=== PATIENT | male | born 1950 | race Caucasian/White ===

== ENCOUNTER → 2016-10-11 | Outpatient (REF) | payer BC, MEDICARE ==
[2016-10-11 12:46] LABS: ALBUMIN 4.3 GM/DL (3.2-5.2); ALBUMIN/GLOBULIN RATIO 1.34 (1.00-1.93); ALKALINE PHOSPHATASE 87 U/L (45-117); ALT/SGPT 38 U/L (12-78); ANION GAP 8 MEQ/L (8-16); AST/SGOT 26 U/L (15-37); BILIRUBIN,TOTAL 0.6 MG/DL (0.2-1.0); BLOOD UREA NITROGEN 13 MG/DL (7-18); CALCIUM LEVEL 9.3 MG/DL (8.8-10.2); CARBON DIOXIDE LEVEL 27 MEQ/L (21-32); CHLORIDE LEVEL 102 MEQ/L (98-107); CHOLESTEROL LEVEL 219 MG/DL (<200); GLOMERULAR FILTRATION RATE > 60.0 (>49); GLUCOSE, FASTING 202 MG/DL (80-110); POTASSIUM SERUM 4.4 MEQ/L (3.5-5.1); SODIUM LEVEL 137 MEQ/L (136-145); TOTAL PROTEIN 7.5 GM/DL (6.4-8.2); TRIGLYCERIDES LEVEL 572 MG/DL (<150)
== END | disposition home or self-care (01) ==
LOC: M SFHCCLAY 09:13
PROVIDERS: ATTEND Nurse Practitioner
DX: E11.49 Type 2 diabetes mellitus with other diabetic neurological complication (principal); E78.5 Hyperlipidemia, unspecified; I10 Essential (primary) hypertension; G57.91 Unspecified mononeuropathy of right lower limb

== ENCOUNTER → 2016-12-30 | Outpatient (REF) | payer BC, MEDICARE ==
[2016-12-30 17:00] LABS: ALBUMIN 4.1 GM/DL (3.2-5.2); ALBUMIN/GLOBULIN RATIO 1.24 (1.00-1.93); ALKALINE PHOSPHATASE 113 U/L (45-117); ALT/SGPT 27 U/L (12-78); ANION GAP 7 MEQ/L (8-16); AST/SGOT 15 U/L (15-37); BILIRUBIN,TOTAL 0.4 MG/DL (0.2-1.0); BLOOD UREA NITROGEN 16 MG/DL (7-18); CALCIUM LEVEL 9.5 MG/DL (8.8-10.2); CARBON DIOXIDE LEVEL 28 MEQ/L (21-32); CHLORIDE LEVEL 107 MEQ/L (98-107); CHOLESTEROL LEVEL 178 MG/DL (<200); CREATININE FOR GFR 1.11 MG/DL (0.70-1.30); GLOMERULAR FILTRATION RATE > 60.0 (>49); GLUCOSE, FASTING 224 MG/DL (80-110); POTASSIUM SERUM 4.4 MEQ/L (3.5-5.1); SODIUM LEVEL 142 MEQ/L (136-145); TOTAL PROTEIN 7.4 GM/DL (6.4-8.2); TRIGLYCERIDES LEVEL 282 MG/DL (<150)
== END ==
LOC: M SFHCCLAY 09:55
PROVIDERS: ATTEND Nurse Practitioner
DX: E11.49 Type 2 diabetes mellitus with other diabetic neurological complication (principal)

== ENCOUNTER → 2017-08-03 | Outpatient (REF) | payer BC, MEDICARE ==
[2017-08-03 18:56] LABS: ALBUMIN 4.3 GM/DL (3.2-5.2); ALKALINE PHOSPHATASE 91 U/L (45-117); ALT/SGPT 24 U/L (12-78); ANION GAP 10 MEQ/L (8-16); AST/SGOT 12 U/L (7-37); BILIRUBIN,TOTAL 0.4 MG/DL (0.2-1.0); BLOOD UREA NITROGEN 13 MG/DL (7-18); CALCIUM LEVEL 9.5 MG/DL (8.8-10.2); CARBON DIOXIDE LEVEL 25 MEQ/L (21-32); CHLORIDE LEVEL 105 MEQ/L (98-107); CHOLESTEROL LEVEL 153 MG/DL (<200); CREATININE FOR GFR 0.93 MG/DL (0.70-1.30); GLOMERULAR FILTRATION RATE > 60.0 (>49); GLUCOSE, FASTING 188 MG/DL (80-110); POTASSIUM SERUM 4.2 MEQ/L (3.5-5.1); SODIUM LEVEL 140 MEQ/L (136-145); TOTAL PROTEIN 7.5 GM/DL (6.4-8.2); TRIGLYCERIDES LEVEL 288 MG/DL (<150)
[2017-08-03 18:57] LABS: ALBUMIN/GLOBULIN RATIO 1.34 (1.00-1.93)
== END ==
LOC: M SFHCCLAY 10:50
PROVIDERS: ATTEND Family Medicine
DX: Z12.5 Encounter for screening for malignant neoplasm of prostate (principal); E11.8 Type 2 diabetes mellitus with unspecified complications
CPT/HCPCS: 80053; 80061; 82043; 83036; G0103

== ENCOUNTER → 2018-02-27 | Outpatient (REF) | payer BC, MEDICARE ==
[2018-02-27 16:44] LABS: ALBUMIN 3.9 GM/DL (3.2-5.2); ALBUMIN/GLOBULIN RATIO 1.26 (1.00-1.93); ALKALINE PHOSPHATASE 85 U/L (45-117); ALT/SGPT 29 U/L (12-78); ANION GAP 10 MEQ/L (8-16); AST/SGOT 17 U/L (7-37); BILIRUBIN,TOTAL 0.3 MG/DL (0.2-1.0); BLOOD UREA NITROGEN 12 MG/DL (7-18); CALCIUM LEVEL 8.9 MG/DL (8.8-10.2); CARBON DIOXIDE LEVEL 23 MEQ/L (21-32); CHLORIDE LEVEL 110 MEQ/L (98-107); CREATININE FOR GFR 1.03 MG/DL (0.70-1.30); GLOMERULAR FILTRATION RATE > 60.0 (>49); GLUCOSE, FASTING 214 MG/DL (70-100); POTASSIUM SERUM 4.5 MEQ/L (3.5-5.1); SODIUM LEVEL 143 MEQ/L (136-145)
[2018-02-27 16:50] LABS: ESTIMATED AVERAGE GLUCOSE 177 MG/DL (60-110); HEMOGLOBIN A1c 7.8 %
== END ==
LOC: M SFHCCLAY 09:41
DX: E11.49 Type 2 diabetes mellitus with other diabetic neurological complication (principal)
CPT/HCPCS: 80053

== ENCOUNTER → 2018-06-18 | Outpatient (REF) | payer BC, MEDICARE ==
[2018-06-19 22:05] LABS: ANION GAP 9 MEQ/L (8-16); BLOOD UREA NITROGEN 15 MG/DL (7-18); CALCIUM LEVEL 8.9 MG/DL (8.8-10.2); CARBON DIOXIDE LEVEL 25 MEQ/L (21-32); CHLORIDE LEVEL 104 MEQ/L (98-107); CREATININE FOR GFR 0.86 MG/DL (0.70-1.30); GLOMERULAR FILTRATION RATE > 60.0 (>49); GLUCOSE, FASTING 194 MG/DL (70-100); POTASSIUM SERUM 3.8 MEQ/L (3.5-5.1); SODIUM LEVEL 138 MEQ/L (136-145)
[2018-06-19 23:35] LABS: ESTIMATED AVERAGE GLUCOSE 212 MG/DL (60-110)
== END ==
LOC: M SFHCCLAY 15:49
DX: E11.49 Type 2 diabetes mellitus with other diabetic neurological complication (principal)
CPT/HCPCS: 83036

== ENCOUNTER → 2018-10-05 | Outpatient (REF) | payer OTHER ==
[2018-10-05 12:58] LABS: CREATININE, URINE 29.7 MG/DL; MALB URINE SIEMENS 25.1 MG/L; MAU/CREAT RATIO 84.5 MCG/MG (0.0-30.0)
[2018-10-05 12:59] LABS: ALBUMIN 3.9 GM/DL (3.2-5.2); ALT/SGPT 25 U/L (12-78); BILIRUBIN,TOTAL 0.4 MG/DL (0.2-1.0); BLOOD UREA NITROGEN 10 MG/DL (7-18); CALCIUM LEVEL 8.8 MG/DL (8.8-10.2); CARBON DIOXIDE LEVEL 27 MEQ/L (21-32); CHLORIDE LEVEL 105 MEQ/L (98-107); CHOLESTEROL LEVEL 177 MG/DL (<200); CHOLESTEROL RISK RATIO 4.214 (<5); CREATININE FOR GFR 0.89 MG/DL (0.70-1.30); GLOMERULAR FILTRATION RATE > 60.0 (>49); GLUCOSE, FASTING 158 MG/DL (70-100); HDL CHOLESTEROL 42 MG/DL (>40); LDL CHOLESTEROL 89 MG/DL (<100); NON-HDL-C 135 MG/DL; POTASSIUM SERUM 3.9 MEQ/L (3.5-5.1); SODIUM LEVEL 140 MEQ/L (136-145); TOTAL PROTEIN 6.9 GM/DL (6.4-8.2); TRIGLYCERIDES LEVEL 232 MG/DL (<150)
[2018-10-05 13:52] LABS: HEMOGLOBIN A1c 8.6 %
== END ==
LOC: M SFHCCLAY 08:09
PROVIDERS: ATTEND Family Medicine
DX: E11.49 Type 2 diabetes mellitus with other diabetic neurological complication (principal)

== ENCOUNTER → 2019-01-03 | Outpatient (REF) | payer BC ==
[2019-01-03 17:06] LABS: ALBUMIN 3.7 GM/DL (3.2-5.2); ALT/SGPT 24 U/L (12-78); BILIRUBIN,TOTAL 0.3 MG/DL (0.2-1.0); BLOOD UREA NITROGEN 10 MG/DL (7-18); CALCIUM LEVEL 9.5 MG/DL (8.8-10.2); CARBON DIOXIDE LEVEL 31 MEQ/L (21-32); CHLORIDE LEVEL 103 MEQ/L (98-107); GLOMERULAR FILTRATION RATE > 60.0 (>49); GLUCOSE, FASTING 199 MG/DL (70-100); POTASSIUM SERUM 4.1 MEQ/L (3.5-5.1); SODIUM LEVEL 140 MEQ/L (136-145); TOTAL PROTEIN 7.2 GM/DL (6.4-8.2)
[2019-01-03 17:09] LABS: HEMOGLOBIN A1c 8.1 %
== END ==
LOC: M SFHCCLAY 10:50
PROVIDERS: ATTEND Family Medicine
DX: E11.49 Type 2 diabetes mellitus with other diabetic neurological complication (principal)

== ENCOUNTER → 2019-05-09 | Outpatient (REF) | payer BC ==
[2019-05-09 17:44] LABS: ALBUMIN 4.2 GM/DL (3.2-5.2); ALT/SGPT 39 U/L (12-78); BILIRUBIN,TOTAL 0.5 MG/DL (0.2-1.0); BLOOD UREA NITROGEN 17 MG/DL (7-18); CALCIUM LEVEL 9.8 MG/DL (8.8-10.2); CARBON DIOXIDE LEVEL 24 MEQ/L (21-32); CHLORIDE LEVEL 103 MEQ/L (98-107); CREATININE FOR GFR 1.03 MG/DL (0.70-1.30); GLOMERULAR FILTRATION RATE > 60.0 (>49); GLUCOSE, FASTING 164 MG/DL (70-100); POTASSIUM SERUM 4.2 MEQ/L (3.5-5.1); SODIUM LEVEL 139 MEQ/L (136-145); TOTAL PROTEIN 7.3 GM/DL (6.4-8.2)
[2019-05-09 19:22] LABS: HEMOGLOBIN A1c 8.5 %
== END ==
LOC: M SFHCCLAY 13:49
PROVIDERS: ATTEND Family Medicine
DX: E11.49 Type 2 diabetes mellitus with other diabetic neurological complication (principal)

== ENCOUNTER → 2019-08-19 | Outpatient (CLI) | payer BC ==
--- NOTE | 2019-08-24 09:15 | SLEEPCENT ---
DATE OF PROCEDURE: 08/19/2019 ORDERED BY: Dr. Ghada Salvador Nocturnal polysomnography was performed for the titration of pressure therapy in this patient with obstructive sleep apnea syndrome. For testing a ResMed AirFit F20 full face mask of medium size was used, 4 cm of water pressure were initially applied to the circuit and the lights were extinguished. 7 hours and 24 minutes of data were reviewed. There were 374.5 minutes of sleep identified. Sleep latency was prolonged at 32.5 minutes. Rapid eye movement (REM) latency was normal at 58 minutes, sleep architecture was good with three REM cycles. Overall sleep efficiency 85.4%. The patient's electrocardiogram showed sinus rhythm with an average heart rate of 75 beats per minute. EEG showed normal waveforms for awake and sleep. Respiratory events prompted a increase in continuous positive airway pressure (CPAP) to the optimal pressure of +13 with which the patient slept through REM without respiratory event or oxygen desaturation. There was significant limb activity but limb movement arousal index was only 2.6. IMPRESSION: Obstructive sleep apnea syndrome (G47.33). RECOMMENDATION: Nightly use of pressure therapy 13 cm of water.
== END ==
LOC: M SLEEP 19:36
PROVIDERS: ATTEND Internal Medicine Pulmonary Disease
DX: G47.33 Obstructive sleep apnea (adult) (pediatric) (principal)

== ENCOUNTER → 2019-09-30 | Outpatient (REF) | payer OTHER, BC ==
[2019-09-30 17:14] LABS: ALBUMIN 4.3 GM/DL (3.2-5.2); ALT/SGPT 27 U/L (12-78); BILIRUBIN,TOTAL 0.5 MG/DL (0.2-1.0); BLOOD UREA NITROGEN 22 MG/DL (7-18); CALCIUM LEVEL 9.4 MG/DL (8.8-10.2); CARBON DIOXIDE LEVEL 26 MEQ/L (21-32); CHLORIDE LEVEL 107 MEQ/L (98-107); CHOLESTEROL LEVEL 206 MG/DL (<200); GLOMERULAR FILTRATION RATE > 60.0 (>49); GLUCOSE, FASTING 165 MG/DL (70-100); HDL CHOLESTEROL 43 MG/DL (>40); LDL CHOLESTEROL 102 MG/DL (<100); NON-HDL-C 163 MG/DL; POTASSIUM SERUM 4.3 MEQ/L (3.5-5.1); SODIUM LEVEL 142 MEQ/L (136-145); TOTAL PROTEIN 7.4 GM/DL (6.4-8.2); TRIGLYCERIDES LEVEL 305 MG/DL (<150)
[2019-09-30 17:18] LABS: HEMOGLOBIN A1c 8.4 %
== END ==
LOC: M SFHCCLAY 10:56
PROVIDERS: ATTEND Family Medicine
DX: E11.49 Type 2 diabetes mellitus with other diabetic neurological complication (principal); E78.5 Hyperlipidemia, unspecified

== ENCOUNTER → 2020-01-30 | Outpatient (REF) | payer BC ==
[2020-01-30 16:28] LABS: ALBUMIN 3.9 GM/DL (3.2-5.2); ALT/SGPT 31 U/L (12-78); BILIRUBIN,TOTAL 0.4 MG/DL (0.2-1.0); BLOOD UREA NITROGEN 34 MG/DL (7-18); CALCIUM LEVEL 9.2 MG/DL (8.8-10.2); CARBON DIOXIDE LEVEL 23 MEQ/L (21-32); CHLORIDE LEVEL 105 MEQ/L (98-107); CREATININE FOR GFR 1.25 MG/DL (0.70-1.30); GLOMERULAR FILTRATION RATE > 60.0 (>49); GLUCOSE, FASTING 189 MG/DL (70-100); POTASSIUM SERUM 4.7 MEQ/L (3.5-5.1); SODIUM LEVEL 135 MEQ/L (136-145); TOTAL PROTEIN 6.8 GM/DL (6.4-8.2)
[2020-01-30 17:33] LABS: HEMOGLOBIN A1c 9.6 %
== END ==
LOC: M SFHCCLAY 09:53
PROVIDERS: ATTEND Family Medicine
DX: E11.49 Type 2 diabetes mellitus with other diabetic neurological complication (principal)

== ENCOUNTER → 2020-06-01 | Outpatient (REF) | payer BC ==
[2020-06-01 17:06] LABS: BILIRUBIN,TOTAL 0.4 MG/DL (0.2-1.0); CALCIUM LEVEL 10.6 MG/DL (8.8-10.2); CREATININE FOR GFR 1.44 MG/DL (0.70-1.30); GLOMERULAR FILTRATION RATE 52.1 (>49); TOTAL PROTEIN 7.1 GM/DL (6.4-8.2)
[2020-06-01 18:05] LABS: HEMOGLOBIN A1c 7.9 %
== END ==
LOC: M SFHCCLAY 11:17
PROVIDERS: ATTEND Family Medicine
DX: E11.49 Type 2 diabetes mellitus with other diabetic neurological complication (principal); I10 Essential (primary) hypertension

== ENCOUNTER → 2020-10-02 | Outpatient (REF) | payer BC ==
[2020-10-02 15:46] LABS: BASO # 0.1 10^3/uL (0.0-0.2); BASO % 0.8 % (0.0-1.0); EOS # 0.5 10^3/uL (0.0-0.5); EOS % 7.2 % (0.0-3.0); HEMATOCRIT 41.4 % (42.0-52.0); HEMOGLOBIN 13.3 g/dl (13.5-17.5); MEAN CORPUSCULAR HEMOGLOBIN 27.9 pg (27.0-33.0); MEAN CORPUSCULAR HGB CONC 32.1 g/dl (32.0-36.5); MEAN CORPUSCULAR VOLUME 86.8 fl (80.0-96.0); MONO # 0.6 10^3/uL (0.0-0.8); MONO % 8.6 % (0.0-5.0); NEUTROPHILS % 55.1 % (36.0-66.0); PLATELET COUNT, AUTOMATED 178 10^3/uL (150-450); RED BLOOD COUNT 4.77 10^6/uL (4.30-6.10); WHITE BLOOD COUNT 7.2 10^3/uL (4.0-10.0)
[2020-10-02 16:12] LABS: ALT/SGPT 43 U/L (12-78); BILIRUBIN,TOTAL 0.4 MG/DL (0.2-1.0); BLOOD UREA NITROGEN 25 MG/DL (7-18); CALCIUM LEVEL 9.8 MG/DL (8.8-10.2); CARBON DIOXIDE LEVEL 27 MEQ/L (21-32); CHLORIDE LEVEL 101 MEQ/L (98-107); CHOLESTEROL LEVEL 200 MG/DL (<200); CREATININE FOR GFR 1.43 MG/DL (0.70-1.30); GLOMERULAR FILTRATION RATE 52.5 (>49); GLUCOSE, FASTING 238 MG/DL (70-100); HDL CHOLESTEROL 33 MG/DL (>40); NON-HDL-C 167 MG/DL; POTASSIUM SERUM 4.7 MEQ/L (3.5-5.1); SODIUM LEVEL 137 MEQ/L (136-145); TOTAL PROTEIN 6.8 GM/DL (6.4-8.2); TRIGLYCERIDES LEVEL 641 MG/DL (<150)
[2020-10-02 16:20] LABS: FOLATE 11.3 NG/ML (>5.4); VITAMIN B12 LEVEL 259 PG/ML (247-911)
[2020-10-02 16:40] LABS: HEMOGLOBIN A1c 9.3 %
== END ==
LOC: M SFHCCLAY 10:31
PROVIDERS: ATTEND Family Medicine
DX: I10 Essential (primary) hypertension (principal); E11.49 Type 2 diabetes mellitus with other diabetic neurological complication; G60.9 Hereditary and idiopathic neuropathy, unspecified

== ENCOUNTER → 2020-10-09 | Outpatient (CLI) | payer SELFPAY | LOC: M LABSMTC 13:23 | PROVIDERS: ATTEND Pediatrics | DX: Z20.822 Contact with and (suspected) exposure to COVID-19 (principal) ==

== ENCOUNTER → 2020-10-16 | Outpatient (CLI) | payer SELFPAY | LOC: M LABSMTC 09:54 | PROVIDERS: ATTEND Pediatrics | DX: Z20.822 Contact with and (suspected) exposure to COVID-19 (principal) ==

== ENCOUNTER → 2021-02-04 | Outpatient (REF) | payer BC ==
[2021-02-05 13:24] LABS: ALBUMIN 4.2 GM/DL (3.2-5.2); BILIRUBIN,TOTAL 0.4 MG/DL (0.2-1.0); CALCIUM LEVEL 9.5 MG/DL (8.8-10.2); CREATININE FOR GFR 1.3 MG/DL (0.70-1.30); GLOMERULAR FILTRATION RATE 58.4 (>49); POTASSIUM SERUM 4.6 MEQ/L (3.5-5.1); TOTAL PROTEIN 7.4 GM/DL (6.4-8.2)
[2021-02-06 07:10] LABS: HEMOGLOBIN A1c 9.3 %
== END ==
LOC: M SFHCCLAY 14:11
PROVIDERS: ATTEND Family Medicine
DX: E11.49 Type 2 diabetes mellitus with other diabetic neurological complication (principal)

== ENCOUNTER → 2021-06-10 | Outpatient (REF) | payer BC ==
[2021-06-11 12:12] LABS: BASO # 0.1 10^3/uL (0.0-0.2); BASO % 1.1 % (0.0-1.0); EOS # 0.5 10^3/uL (0.0-0.5); EOS % 7.3 % (0.0-3.0); HEMOGLOBIN 14.3 g/dl (13.5-17.5); LYMPH # 1.3 10^3/uL (1.5-5.0); MEAN CORPUSCULAR HEMOGLOBIN 27.8 pg (27.0-33.0); MEAN CORPUSCULAR HGB CONC 31.1 g/dl (32.0-36.5); MEAN CORPUSCULAR VOLUME 89.3 fl (80.0-96.0); MONO # 0.6 10^3/uL (0.0-0.8); MONO % 9.5 % (2.0-8.0); NEUTROPHILS # 3.8 10^3/uL (1.5-8.5); NEUTROPHILS % 60.6 % (36.0-66.0); PLATELET COUNT, AUTOMATED 177 10^3/uL (150-450); RED BLOOD COUNT 5.15 10^6/uL (4.30-6.10); WHITE BLOOD COUNT 6.3 10^3/uL (4.0-10.0)
[2021-06-11 12:42] LABS: BILIRUBIN,TOTAL 0.4 MG/DL (0.2-1.0); CALCIUM LEVEL 9.5 MG/DL (8.8-10.2); CHOLESTEROL RISK RATIO 4.756 (<5); CREATININE FOR GFR 1.46 MG/DL (0.70-1.30); GLOMERULAR FILTRATION RATE 51.1 (>49); POTASSIUM SERUM 5.2 MEQ/L (3.5-5.1); TOTAL PROTEIN 7.4 GM/DL (6.4-8.2)
[2021-06-11 13:23] LABS: HEMOGLOBIN A1c 7.2 %
== END ==
LOC: M SFHCCLAY 14:09
PROVIDERS: ATTEND Family Medicine
DX: E11.8 Type 2 diabetes mellitus with unspecified complications (principal)

== ENCOUNTER → 2021-07-13 | Outpatient (CLI) | payer BC ==
--- NOTE | 2021-07-13 12:37 | REP ---
INDICATION: M79.671, M79.672 BILATERAL FOOT PAIN COMPARISON: None. TECHNIQUE: AP, lateral, bilateral oblique views right and left foot. FINDINGS: Right foot demonstrates moderate hallux valgus deformity. Periarticular sclerosis and joint space narrowing at the tarsometatarsal joints is appreciated. Remainder of the examination is relatively age-appropriate. Lateral view demonstrates small calcaneal heel spur and peripheral vascular disease. No acute fracture or dislocation. Left foot demonstrates mild hallux valgus deformity. Remainder of the examination is relatively age-appropriate. No further significant osteoarthritic degenerative changes are identified. Lateral view demonstrates calcaneal heel spur and peripheral vascular disease. No acute fracture or dislocation. IMPRESSION: Relatively age-appropriate degenerative changes along with bilateral hallux valgus deformity. <Electronically signed by Pj Laughlin > 07/13/21 [id number]
== END ==
LOC: M CLY 11:39
PROVIDERS: ATTEND Physician Assistant
DX: M79.671 Pain in right foot (principal); M79.672 Pain in left foot; M20.11 Hallux valgus (acquired), right foot; M20.12 Hallux valgus (acquired), left foot; M77.31 Calcaneal spur, right foot; M19.072 Primary osteoarthritis, left ankle and foot; M19.071 Primary osteoarthritis, right ankle and foot

== ENCOUNTER → 2021-07-27 | Outpatient (REF) | payer BC | LOC: M LAB REF 15:56 | PROVIDERS: ATTEND Podiatrist | DX: M79.671 Pain in right foot (principal); L60.0 Ingrowing nail ==

== ENCOUNTER → 2021-08-04 | Outpatient (CLI) | payer BC ==
[~2021-08-04] MED LIST: ISOVUE-370 76% 100ML VIAL As Ordered ONE
--- NOTE | 2021-08-05 07:23 | REP ---
INDICATION: CLAUDICATION COMPARISON: None TECHNIQUE: Axial contrast-enhanced images from the lung bases through the bilateral lower extremities using angiographic technique including multiplanar MIP reformations, volume rendered 3D multi rotational angiogram of the abdominal aorta and bilateral lower extremity runoff images. This CT examination was performed using the following dose reduction techniques: Automated exposure control, adjustment of mA and/or kv according to the patient's size, and use of iterative reconstruction technique. FINDINGS: The abdominal aorta as well as bilateral common iliac arteries demonstrate mild to moderate amounts of partially calcified atherosclerotic changes. However there is no evidence for abdominal aortic aneurysm, dissection or significant stenosis. Major branch vessels including celiac axis, superior mesenteric artery, bilateral renal arteries and inferior mesenteric artery appear essentially patent and relatively normal. Very minimal narrowing at the origin of the right renal artery cannot be excluded. Right lower extremity demonstrates moderate amounts of partially calcified atherosclerotic changes extending from the common femoral artery caudally. Moderate to significant scattered areas of narrowing/stenosis through the superficial femoral artery and popliteal artery are noted followed by trifurcation demonstrating flow through the proximal/mid anterior tibial and proximal peroneal artery. Scattered elements of calcification significantly limit evaluation and differentiation between actual flow enhancement versus elements of calcification and stenosis/occlusion from the proximal calf to the ankle. Left lower extremity demonstrates moderate to significant amounts of partially calcified atherosclerotic changes from the superficial femoral artery through the ankle with areas of stenosis and possible suspected partial occlusion involving the mid to distal superficial femoral artery and revascularization at the level of the popliteal artery by collateral and geniculate arteries. Further elements of stenosis involving the distal popliteal artery and suspected occlusion of the anterior tibial artery along with areas of stenosis involve the posterior tibial and peroneal arteries to the ankle. Liver, spleen, pancreas, gallbladder, bilateral adrenal glands and kidneys are essentially normal for arterial phase enhancement. The enteric system is without obstruction or acute inflammatory process. Diffuse colonic and sigmoid diverticulosis noted without acute diverticulitis. Normal terminal ileum and appendix are identified in the right lower quadrant. 3 cm fat containing periumbilical hernias identified. Pelvis demonstrates normal bladder and mildly prominent prostate gland. No obvious ascites. No significant adenopathy. Musculoskeletal structures demonstrate degenerative changes and right hip replacement. IMPRESSION: 1. Extensive atherosclerotic changes to the bilateral lower extremities with suspected scattered areas of stenosis as well as areas of occlusion involving the left superficial femoral artery as well as the left anterior tibial artery. Arterial ultrasound examination is recommended for more specific and detailed evaluation of flow to the lower extremities. <Electronically signed by Pj Laughlin > 08/05/21 0719
== END ==
LOC: M RAD 14:11
PROVIDERS: ATTEND Podiatrist
DX: I70.213 Atherosclerosis of native arteries of extremities with intermittent claudication, bilateral legs (principal)
CPT/HCPCS: 75635; Q9967

== ENCOUNTER → 2021-10-09 | Outpatient (CLI) | payer BC | LOC: M LABSMTC 10:21 | PROVIDERS: ATTEND Surgery Vascular Surgery | DX: U07.1 COVID-19 (principal) ==

== ENCOUNTER → 2021-11-29 | Outpatient (REF) | payer BC ==
[2021-11-29 12:15] LABS: CALCIUM LEVEL 8.7 MG/DL (8.8-10.2); CREATININE FOR GFR 1.58 MG/DL (0.70-1.30); GLOMERULAR FILTRATION RATE 46.5 (>49); POTASSIUM SERUM 4.7 MEQ/L (3.5-5.1)
== END ==
LOC: M LABDRAWC 11:14
DX: Z95.820 Peripheral vascular angioplasty status with implants and grafts (principal)

== ENCOUNTER → 2021-12-31 | Outpatient (CLI) | payer BC | LOC: M CLY 14:03 | PROVIDERS: ATTEND Family Medicine | DX: J81.1 Chronic pulmonary edema (principal); R06.02 Shortness of breath ==

== ENCOUNTER → 2022-06-10 | Outpatient (CLI) | payer OTHER | LOC: M RAD 08:22 | PROVIDERS: ATTEND Otolaryngology | DX: H90.A22 Sensorineural hearing loss, unilateral, left ear, with restricted hearing on the contralateral side (principal) ==

== ENCOUNTER → 2022-07-25 | Outpatient (REF) | payer BC ==
[2022-07-25 18:19] LABS: CHLORIDE LEVEL 98 MMOL/L (98-107); SODIUM LEVEL 134 MMOL/L (136-145)
[2022-07-25 18:20] LABS: ALBUMIN 3.4 G/DL (3.2-5.2); CARBON DIOXIDE LEVEL 23 MMOL/L (20-31)
[2022-07-25 18:21] LABS: CALCIUM LEVEL 8.5 MG/DL (8.3-10.6)
[2022-07-25 18:25] LABS: BLOOD UREA NITROGEN 23 MG/DL (9-23); TRIGLYCERIDES LEVEL 610 MG/DL (<150)
[2022-07-25 18:26] LABS: ALKALINE PHOSPHATASE 117 U/L (46-116); CHOLESTEROL LEVEL 146 MG/DL (<200); CREATININE FOR GFR 1.56 MG/DL (0.70-1.30); GLOMERULAR FILTRATION RATE 47.2 (>49)
[2022-07-25 18:27] LABS: ALT/SGPT 28 U/L (7.0-40); BILIRUBIN,TOTAL 0.2 MG/DL (0.3-1.2); CHOLESTEROL RISK RATIO 5.46 (<5); HDL CHOLESTEROL 26.7 MG/DL (>40); NON-HDL-C 119 MG/DL; TOTAL PROTEIN 6.2 G/DL (5.7-8.2)
[2022-07-25 19:35] LABS: AST/SGOT 22 U/L (<34); GLUCOSE, FASTING 462 MG/DL (74-106); POTASSIUM SERUM 4.7 MMOL/L (3.5-5.1)
[2022-07-25 20:09] LABS: HEMOGLOBIN A1c 12.5 % (4.0-6.0)
== END ==
LOC: M SFHCCLAY 10:25
PROVIDERS: ATTEND Family Medicine
DX: E11.49 Type 2 diabetes mellitus with other diabetic neurological complication (principal)

== ENCOUNTER 2024-02-05 17:39 | Observation (INO) | payer OTHER ==
[~2024-02-05] VITALS: Ht 175.3 cm; Wt 87.7 kg
[2024-02-05] MEDS: MAG SULF 1GM/100ML (MAG RUN) 1 GM in IV 1 EA IV SCH (00:24)
[2024-02-05 19:07] LABS: BASO # 0.1 10^3/uL (0.0-0.2); BASO % 0.5 % (0.0-1.0); EOS # 0.3 10^3/uL (0.0-0.5); EOS % 2.7 % (0.0-3.0); HEMATOCRIT 34.1 % (42.0-52.0); HEMOGLOBIN 10.6 g/dl (13.5-17.5); LYMPH # 0.9 10^3/uL (1.5-5.0); LYMPH % 7.8 % (24.0-44.0); MEAN CORPUSCULAR HEMOGLOBIN 25.9 pg (27.0-33.0); MEAN CORPUSCULAR HGB CONC 31.1 g/dl (32.0-36.5); MEAN CORPUSCULAR VOLUME 83.2 fl (80.0-96.0); MONO # 0.7 10^3/uL (0.0-0.8); MONO % 6.1 % (2.0-8.0); NEUTROPHILS % 82.5 % (36.0-66.0); PLATELET COUNT, AUTOMATED 207 10^3/uL (150-450); WHITE BLOOD COUNT 10.9 10^3/uL (4.0-10.0)
[2024-02-05 19:19] LABS: INR 1.23; PROTHROMBIN TIME 15.1 SECONDS (12.5-14.5)
[2024-02-05 19:27] LABS: CK-MB VALUE MASS 2.4 NG/ML (<3.6); LIPASE 82 U/L (12-53)
[2024-02-05 19:29] LABS: CPK CREATINE PHOSPHOKINASE 96 U/L (46-171)
[2024-02-05 19:47] LABS: IRON (FE) 17 UG/DL (65-175)
[2024-02-05 19:48] LABS: ALBUMIN 2.9 G/DL (3.2-5.2); ALKALINE PHOSPHATASE 103 U/L (46-116); ALT/SGPT 13 U/L (7.0-40); AST/SGOT < 8 U/L (<34); BILIRUBIN,DIRECT 0.1 MG/DL (<0.4); BILIRUBIN,TOTAL 0.3 MG/DL (0.3-1.2); BLOOD UREA NITROGEN 15 MG/DL (9-23); CALCIUM LEVEL 8.2 MG/DL (8.3-10.6); CARBON DIOXIDE LEVEL 24 MMOL/L (20-31); CHLORIDE LEVEL 104 MMOL/L (98-107); GLOMERULAR FILTRATION RATE > 60.0 (>42); GLUCOSE, FASTING 316 MG/DL (74-106); MAGNESIUM LEVEL 0.8 MG/DL (1.8-2.4); POTASSIUM SERUM 4.2 MMOL/L (3.5-5.1); SODIUM LEVEL 137 MMOL/L (136-145); TOTAL PROTEIN 6.1 G/DL (5.7-8.2)
[2024-02-05] MEDS: MAG SULF 1GM/100ML (MAG RUN) 1 GM in IV 1 EA IV ONE (20:13)
[2024-02-05] MEDS: MAGNESIUM OXIDE 400MG TAB (MAG-OX) PO ONE (21:00)
[2024-02-05] MEDS ORDERED: PANT-23 PO (21:06)
[2024-02-05] MEDS ORDERED: SPIR-10 PO (21:06)
[2024-02-05] MEDS ORDERED: METF-838 PO (21:06)
[2024-02-05] MEDS ORDERED: LISI5TAB11 PO (21:06)
[2024-02-05] MEDS ORDERED: ECOT81TA5 PO (21:06)
[2024-02-05] MEDS ORDERED: METO50TA7 PO (21:06)
[2024-02-05] MEDS ORDERED: GABA-1171 PO (21:06)
[2024-02-05] MEDS ORDERED: INSU100I59 SQ (21:06)
[2024-02-05] MEDS ORDERED: FERR324T2 PO (21:06)
[2024-02-05] MEDS ORDERED: SEMA1PEN2 SQ (21:06)
[2024-02-05] MEDS ORDERED: NOVOINJ3 SC (21:06)
[2024-02-05] MEDS ORDERED: VENTAER INH (21:09)
[2024-02-05] MEDS ORDERED: ATOR80TA59 PO (21:13)
[2024-02-05] MEDS ORDERED: ACET-907 PO (21:13)
[2024-02-05] MEDS ORDERED: SENN-188 PO (21:13)
[2024-02-05] MEDS ORDERED: HOME MED LIST COMPLETE! XX SCH (21:15)
[2024-02-05] MEDS ORDERED: DEXTROSE 50% 50ML SYRINGE IV PRN (21:35)
[2024-02-05] MEDS ORDERED: ALBUTEROL 90 MCG/ACT 8GM HFA INHALER INH PRN (21:35)
[2024-02-05] MEDS ORDERED: GLUCAGON INJ 1MG VIAL SC PRN (21:35)
[2024-02-05] MEDS ORDERED: GLUCOSE 4 GM CHEW PO PRN (21:35)
[2024-02-05] MEDS ORDERED: ACETAMINOPHEN 325 MG TAB PO PRN (21:35)
[2024-02-05 23:14] VITALS: BP 165/86; TEMP 97.7; O2SAT 95
[2024-02-05] MEDS: LEVEMIR (INSULIN DETEMIR) 1 UNITS/0.01ML SC SCH (23:29)
[2024-02-05 23:37] LABS: MAGNESIUM LEVEL 1.1 MG/DL (1.8-2.4)
[2024-02-05 23:38] LABS: PERCENT SATURATION 9.1 % (19.7-50.0)
[2024-02-05 23:40] LABS: FERRITIN 257.8 NG/ML (10.5-307.3)
[2024-02-05 23:41] LABS: FOLATE 14.43 NG/ML (>5.4)
[2024-02-06] VITALS: BP 165/86; TEMP 97.7; O2SAT 95
[2024-02-06] MEDS: MAG SULF 1GM/100ML (MAG RUN) 1 GM in IV 1 EA IV ONE (01:14)
[2024-02-06 06:05] LABS: HEMATOCRIT 30.8 % (42.0-52.0); HEMOGLOBIN 9.8 g/dl (13.5-17.5); MEAN CORPUSCULAR HEMOGLOBIN 26.4 pg (27.0-33.0); MEAN CORPUSCULAR HGB CONC 31.8 g/dl (32.0-36.5); PLATELET COUNT, AUTOMATED 176 10^3/uL (150-450); RED BLOOD COUNT 3.71 10^6/uL (4.30-6.10); WHITE BLOOD COUNT 9.6 10^3/uL (4.0-10.0)
[2024-02-06 06:28] LABS: BLOOD UREA NITROGEN 13 MG/DL (9-23); CALCIUM LEVEL 8.4 MG/DL (8.3-10.6); CARBON DIOXIDE LEVEL 24 MMOL/L (20-31); CHLORIDE LEVEL 106 MMOL/L (98-107); CREATININE FOR GFR 1.07 MG/DL (0.70-1.30); GLOMERULAR FILTRATION RATE > 60.0 (>42); GLUCOSE, FASTING 201 MG/DL (74-106); MAGNESIUM LEVEL 1.7 MG/DL (1.8-2.4); POTASSIUM SERUM 3.9 MMOL/L (3.5-5.1); SODIUM LEVEL 139 MMOL/L (136-145)
[2024-02-06] MEDS: MAG SULF 1GM/100ML (MAG RUN) 1 GM in IV 1 EA IV SCH (07:38)
[2024-02-06] MEDS: GABAPENTIN 100 MG CAP PO SCH (07:38)
[2024-02-06] MEDS: METOPROLOL TART 50 MG TAB PO SCH (07:39)
[2024-02-06] MEDS: lisinopriL 5 MG TAB PO SCH (07:39)
[2024-02-06] MEDS: ASPIRIN 81MG ENTERIC TABLET PO SCH (07:39)
[2024-02-06] MEDS: ENOXAPARIN 40MG/0.4ML SYRINGE (J1650 PER 10MG) SC SCH (07:40)
[2024-02-06] MEDS: PANTOPRAZOLE 40MG TAB (PROTONIX) PO SCH (07:40)
[2024-02-06] MEDS: INSULIN LISPRO (NovoLOG) PER UNIT SC SCH (07:41)
[2024-02-06 08:57] VITALS: BP 149/79
[2024-02-06] MEDS: FERRIC CARBOXYMALTOSE INJ 750 MG, VIAL MATE ADAPTER 1 EACH in NS 250 ML IV ONE (10:22)
[2024-02-06 11:38] LABS: HEMOGLOBIN A1c 8.2 % (4.0-6.0)
[2024-02-06 12:08] VITALS: BP 158/88; TEMP 97.6; O2SAT 97
[2024-02-06] MEDS ORDERED: INSU100I59 SQ (12:33)
[2024-02-06] MEDS ORDERED: FERR324T2 PO (12:33)
[2024-02-06] MEDS ORDERED: LISI20TA33 PO (12:33)
[2024-02-06] MEDS ORDERED: MAGN400T2 PO (12:34)
[2024-02-06] MEDS ORDERED: SENNA 8.6 MG TAB (SENOKOT) PO PRN (17:00)
[2024-02-06] MEDS ORDERED: INSULIN LISPRO (NovoLOG) PER UNIT SC SCH (21:00)
[2024-02-06] MEDS ORDERED: ATORVASTATIN 20 MG TAB PO SCH (21:00)
== END 2024-02-06 14:20 | disposition home or self-care (01) ==
LOC: M ED 17:39 → M ED INP 17:40 → M PCU 23:05
PROVIDERS: ADMIT Internal Medicine; ATTEND Internal Medicine
DX: E83.42 Hypomagnesemia (principal); D50.9 Iron deficiency anemia, unspecified; I73.9 Peripheral vascular disease, unspecified; K21.9 Gastro-esophageal reflux disease without esophagitis; R19.7 Diarrhea, unspecified; I25.10 Atherosclerotic heart disease of native coronary artery without angina pectoris; Z95.1 Presence of aortocoronary bypass graft; I10 Essential (primary) hypertension; E11.40 Type 2 diabetes mellitus with diabetic neuropathy, unspecified; K59.09 Other constipation; J98.9 Respiratory disorder, unspecified; I44.7 Left bundle-branch block, unspecified; Z89.511 Acquired absence of right leg below knee; Z79.899 Other long term (current) drug therapy; Z79.82 Long term (current) use of aspirin; Z79.4 Long term (current) use of insulin; Z79.85 Long-term (current) use of injectable non-insulin antidiabetic drugs
CPT/HCPCS: 36415; 71045; 80048; 80076; 82550; 82553; 82607; 82728; 82746; 83036; 83540; 83550; 83690; 83735; 84238; 84484; 85025; 85027; 85046; 85610; 93005; 93041; 94760; 96365; 96366; 96372; 96375; 99285; G0378; J1439; J1650; J1815; J3475

== ENCOUNTER → 2024-08-14 | Outpatient (REF) | payer MEDICARE, OTHER ==
[~2024-08-14] MED LIST changes: +ACET-907 PO; +ATOR80TA59 PO; +CLOP75TA2 PO; +ECOT81TA5 PO; +FAMO20TA PO; +FERR324T2 PO; +GABA-1171 PO; +INSU100I59 SQ; -ISOVUE-370 76% 100ML VIAL As Ordered ONE; +LISI20TA33 PO; +LISI5TAB11 PO; +MAGN400T2 PO; +METF-838 PO; +METO50TA7 PO; +NOVOINJ3 SC; +NOXI1TAB PO; +PANT-23 PO; +SEMA1PEN2 SQ; +SENN-188 PO; +SPIR-10 PO; +VENTAER INH
[2024-08-14 13:00] LABS: BASO # 0.1 10^3/uL (0.0-0.2); BASO % 0.7 % (0.0-1.0); EOS # 0.4 10^3/uL (0.0-0.5); EOS % 5.3 % (0.0-3.0); HEMATOCRIT 41.1 % (42.0-52.0); HEMOGLOBIN 13.1 g/dl (13.5-17.5); LYMPH # 1.5 10^3/uL (1.5-5.0); LYMPH % 22.2 % (24.0-44.0); MEAN CORPUSCULAR HEMOGLOBIN 28.5 pg (27.0-33.0); MEAN CORPUSCULAR HGB CONC 31.9 g/dl (32.0-36.5); MEAN CORPUSCULAR VOLUME 89.5 fl (80.0-96.0); MONO # 0.7 10^3/uL (0.0-0.8); MONO % 9.9 % (2.0-8.0); NEUTROPHILS # 4.2 10^3/uL (1.5-8.5); NEUTROPHILS % 61.6 % (36.0-66.0); PLATELET COUNT, AUTOMATED 195 10^3/uL (150-450); RED BLOOD COUNT 4.59 10^6/uL (4.30-6.10); WHITE BLOOD COUNT 6.8 10^3/uL (4.0-10.0)
[2024-08-14 13:08] LABS: ALBUMIN 3.5 G/DL (3.2-5.2); BILIRUBIN,TOTAL 0.5 MG/DL (0.3-1.2); CALCIUM LEVEL 9.6 MG/DL (8.3-10.6); CREATININE FOR GFR 1.75 MG/DL (0.70-1.30); GLOMERULAR FILTRATION RATE 41.1 (>42); POTASSIUM SERUM 5.2 MMOL/L (3.5-5.1); TOTAL PROTEIN 6.7 G/DL (5.7-8.2)
[2024-08-14 13:10] LABS: FERRITIN 598.1 NG/ML (10.5-307.3)
[2024-08-16 10:37] LABS: HAPTOGLOBIN 266 mg/dL (43-212)
== END ==
LOC: M LABDRAWC 11:32
PROVIDERS: ATTEND Internal Medicine Medical Oncology
DX: D50.9 Iron deficiency anemia, unspecified (principal)

== ENCOUNTER 2024-11-13 07:23 | Day surgery (SDC) | payer MEDICARE, OTHER ==
[~2024-11-13] VITALS: Ht 175.3 cm; Wt 77.1 kg
[~2024-11-13 07:23] MED LIST changes: +FERR325T3 PO; +JARD1TAB3 PO; +MAGN400T35 PO
[2024-11-13 10:29] VITALS: TEMP 96.6
[2024-11-13 10:42] VITALS: BP 107/63; O2SAT 94
[2024-11-13] MEDS ORDERED: propofoL 200 MG/20 ML VIAL As Ordered ONE (13:49)
[2024-11-13] MEDS ORDERED: LIDOCAINE 2% 100MG/5ML SDV (FOR ANES.) As Ordered ONE (13:49)
== END 2024-11-13 10:52 | disposition home or self-care (01) ==
LOC: M OPP 07:23
PROVIDERS: ATTEND Surgery
DX: D12.6 Benign neoplasm of colon, unspecified (principal); K57.30 Diverticulosis of large intestine without perforation or abscess without bleeding; D50.9 Iron deficiency anemia, unspecified; K31.89 Other diseases of stomach and duodenum; I25.10 Atherosclerotic heart disease of native coronary artery without angina pectoris; Z86.73 Personal history of transient ischemic attack (TIA), and cerebral infarction without residual deficits; G47.30 Sleep apnea, unspecified; Z79.84 Long term (current) use of oral hypoglycemic drugs; Z79.4 Long term (current) use of insulin; Z79.85 Long-term (current) use of injectable non-insulin antidiabetic drugs; Z79.899 Other long term (current) drug therapy; Z95.1 Presence of aortocoronary bypass graft

== ENCOUNTER → 2024-11-22 | Outpatient (REF) | payer OTHER | LOC: M LABDRAWC 17:18 | PROVIDERS: ATTEND Internal Medicine Medical Oncology | DX: D50.9 Iron deficiency anemia, unspecified (principal); Z53.9 Procedure and treatment not carried out, unspecified reason ==

== ENCOUNTER → 2025-06-17 | Outpatient (CLI) | payer OTHER | LOC: M SLEEP 20:00 | PROVIDERS: ATTEND Physician Assistant | DX: G47.33 Obstructive sleep apnea (adult) (pediatric) (principal) ==